=== PATIENT | female | born 1950 | race Caucasian/White ===

== ENCOUNTER 2019-06-27 09:18 | Emergency (ER) | payer MEDICARE, MEDICAID ==
--- NOTE | 2019-06-27 09:44 | ED ---
Abdominal Pain/Female - HPI Summary HPI Summary: Patient is a 68-year-old female who presents emergency department for severe upper abdominal pain times one day. Associated symptoms of nausea and vomiting. Patient denies chest pain, shortness of breath, fever, cough, urinary symptoms. Patient states she's had issues with her gallbladder in the past. Patient also notes history of bowel obstructions and numerous abdominal surgeries. Symptoms are moderate in severity. No current modifying factors. Past medical hx of RA. - History of Current Complaint Chief Complaint: EDAbdPain Stated Complaint: ABDOMINAL PAIN PER PT Time Seen by Provider: 06/27/19 09:28 Hx Obtained From: Patient Pain Intensity: 10 Allergies/Adverse Reactions: Allergies Allergy/AdvReac Type Severity Reaction Status Date / Time Penicillins Allergy Unknown Verified 06/27/19 09:25 Reaction Details codeine AdvReac Nausea And Verified 06/27/19 09:25 Vomiting morphine AdvReac Nausea And Verified 06/27/19 09:25 Vomiting Home Medications: Home Medications Acyclovir [Acyclovir 5% TOPICAL] 1 applic TOPICAL SEE INSTRUCTIONS 06/27/19 [ History Confirmed 06/27/19] Folic Acid TAB* [Folvite TAB*] 1 mg PO DAILY 06/27/19 [History Confirmed ] Gabapentin 300 mg PO TID 06/27/19 [History Confirmed 06/27/19] Methotrexate TAB* 4 tab PO WEEKLY 06/27/19 [History Confirmed 06/27/19] Tofacitinib Citrate [Xeljanz Xr] 1 tab PO DAILY 06/27/19 [History Confirmed 04/09] raNITIdine HCl [Ranitidine HCl] 150 mg PO DAILY 06/27/19 [History Confirmed 04/09] PMH/Surg Hx/FS Hx/Imm Hx Previously Healthy: Yes - Surgical History Surgery Procedure, Year, and Place: intesinal blockage,C section, carpal tunnel Infectious Disease History: No Infectious Disease History: Denies: Traveled Outside the [place] in Last 30 Days - Family History Known Family History: Positive: Non-Contributory - Social History Occupation: Disabled Lives: With Family Alcohol Use: None Substance Use Type: Reports: None Smoking Status (MU): Current Every Day Smoker Review of Systems Constitutional: Negative Negative: Fever, Chills Cardiovascular: Negative Negative: Chest Pain Respiratory: Negative Negative: Shortness Of Breath, Cough Positive: Abdominal Pain, Vomiting, Nausea. Negative: Diarrhea Genitourinary: Negative Negative: dysuria Neurological: Negative All Other Systems Reviewed And Are Negative: Yes Physical Exam Triage Information Reviewed: Yes Vital Signs On Initial Exam: Initial Vitals Temp Pulse Resp BP Pulse Ox 97.9 F 105 22 000/00 99 06/27/19 09:19 06/27/19 09:19 06/27/19 09:19 06/27/19 09:19 06/27/19 09:19 Vital Signs Reviewed: Yes Appearance: Positive: Pain Distress - Pt. lying in bed shaking in pain. Nontoxic appearing., Thin Skin: Positive: Warm, Dry Head/Face: Positive: Normal Head/Face Inspection Eyes: Positive: Normal, EOMI Neck: Positive: Supple Respiratory/Lung Sounds: Positive: Clear to Auscultation, Breath Sounds Present Cardiovascular: Positive: Normal, RRR Abdomen Description: Positive: Other: - Abd. is soft with diffuse tenderness. Majority of pian to RUQ quadrant and epigastric region. Musculoskeletal: Positive: Normal, Strength/ROM Intact Neurological: Positive: Normal, CN Intact II-III Psychiatric: Positive: Affect/Mood Appropriate Diagnostics - Vital Signs Vital Signs Temp Pulse Resp BP Pulse Ox 06/27/19 09:19 97.9 F 105 22 000/00 99 - Laboratory Result Diagrams: 06/27/19 09:53 06/27/19 09:53 Lab Statement: Any lab studies that have been ordered have been reviewed, and results considered in the medical decision making process. Abdominal Pain Fem Course/Dx - Course Course Of Treatment: Pt. is a 68 y.o female who presents to the ER for significant RUQ pain. Pt. afebrile. Pt. notes the only pain meds she can have is dilaudid. Pt. given 0.5mg. Blood work is unremarkable. ECG done at 0949 shows a sinus rhythm of 90bpm, right axis deviation, no ST elevation. GB u/s negative. CT abd./pelvis ordered for further evaluation. Labs and urinalysis are unremarkable other than minimally elevated lactic acid 2.2, patient given a liter of fluids. CT per radiology: IMPRESSION: 1. THERE IS A 1.4 X 1.4 HYPERDENSE VERSUS ENHANCING UTERINE LESION WHICH COULD BE BETTER. CHARACTERIZED BY ULTRASOUND OR PELVIC MRI WITH CONTRAST. ]. On reexamination patient's resting more comfortably. Suspect patient's pain is secondary to stool and gas. Did discuss uterine lesion and the fact that she will need close follow-up with her family doctor for further evaluation to further identify. Patient was given magnesium citrate to take home with her. She will follow-up with PCP next week and return to ER symptoms change or worsen. Patient understands and agrees with plan. - Diagnoses Differential Diagnosis: Positive: Gall Bladder Disease, Hepatitis, Renal Colic, Urinary Tract Infection Provider Diagnoses: Abdominal pain, Constipation, Lesion of uterus Discharge ED - Sign-Out/Discharge Documenting (check all that apply): Patient Departure Patient Received Moderate/Deep Sedation with Procedure: No - Discharge Plan Condition: Improved Disposition: HOME Patient Education Materials: Constipation (ED), Acute Abdominal Pain (ED) Referrals: [facility] [Outside] Additional Instructions: Call your PCP today to schedule an appointment for follow up within one week You will need an out patient ultrasound of your uterus to better evaluate abnormality seen on CT scan today Take magnesium citrate as directed Increaser fluids and fiber in diet Return to ER if symptoms change or worsen - Billing Disposition and Condition Condition: IMPROVED Disposition: Home
[2019-06-27] MEDS: NS 0.9% 1000 ML** 1,000 ML IV ONE (09:50)
[2019-06-27] MEDS: Ondansetron INJ* 2 MG/ML VIAL IV ONE (09:50)
[2019-06-27 10:10] LABS: ABS Lymphocytes 1.6 10^3/ul (1.0-4.8); ABS Monocytes 0.4 10^3/ul (0-0.8); ABS Neutrophils 6.7 10^3/ul (1.5-7.7); Eosinophil % 0.4 %; Hematocrit 44 % (35-47); Hemoglobin 14.5 g/dL (12.0-16.0); Lymphocyte % 18.2 %; Mean Corpuscular HGB Conc 33 g/dL (31-36); Mean Corpuscular Hemoglobin 30 pg (27-31); Mean Corpuscular Volume 91 fL (80-97); Mean Platelet Volume 7.5 fL (7.4-10.4); Nucleated Red Blood Cells % 0.1; Platelet Count 245 10^3/uL (150-450); Red Blood Count 4.78 10^6 /uL (3.70-4.87); Red Cell Distribution Width 14 % (10-15); White Blood Count 8.8 10^3/uL (3.5-10.8)
[2019-06-27] MEDS: HYDROmorphone INJ* 0.5 MG/0.5 ML SYRINGE IV SLOW PU ONE (10:15)
[2019-06-27 10:28] LABS: ALT 18 U/L (7-52); AST 21 U/L (13-39); Albumin 4.4 g/dL (3.2-5.2); Albumin/Globulin Ratio 1.6 (1-3); Alkaline Phosphatase 97 U/L (34-104); Anion Gap 7 mmol/L (2-11); Blood Urea Nitrogen 12 mg/dL (6-24); C Reactive Protein < 1.00 mg/L (<8.01); CO2 Carbon Dioxide 26 mmol/L (22-32); Calcium 9.3 mg/dL (8.6-10.3); Chloride 105 mmol/L (101-111); EGFR African American 93.5 (>60); EGFR Non-African American 77.3 (>60); Globulin 2.7 g/dL (2-4); Glucose 131 mg/dL (70-100); Magnesium 1.9 mg/dL (1.9-2.7); Potassium 4.1 mmol/L (3.5-5.0); Sodium 138 mmol/L (135-145); Total Protein 7.1 g/dL (6.4-8.9); Troponin I 0.01 ng/mL (<0.04)
[2019-06-27] MEDS: Iohexol 300* (CONTRAST) 10 ML SDV IV ONE (11:53)
[2019-06-27] MEDS: Magnesium CITRATE* 300 ML BTL PO ONE (13:49)
[2019-06-27 13:56] VITALS: BP 104/60
[2019-06-27 14:46] LABS: Urine Appearance Clear; Urine Bacteria Absent (Absent); Urine Bilirubin Negative (Negative); Urine Blood 1+ (Negative); Urine Color Yellow; Urine Glucose Negative (Negative); Urine Ketones Trace (Negative); Urine Nitrite Negative (Negative); Urine Protein Negative (Negative); Urine Red Blood Cell 2+(6-10/hpf) (Absent); Urine Specific Gravity 1.031 (1.010-1.030); Urine Urobilinogen Negative (Negative); Urine White Blood Cell Trace(0-5/hpf) (Absent)
== END 2019-06-27 13:56 | disposition home or self-care (01) ==
LOC: ED 09:18
DX: K59.00 Constipation, unspecified (principal); N85.9 Noninflammatory disorder of uterus, unspecified; F17.200 Nicotine dependence, unspecified, uncomplicated; Z79.899 Other long term (current) drug therapy; Z88.5 Allergy status to narcotic agent; Z88.0 Allergy status to penicillin
CPT/HCPCS: 36415; 74177; 76705; 80053; 81003; 81015; 83605; 83690; 83735; 84484; 85025; 86140; 87086; 93005; 96361; 96374; 96375; 99283; A9270-GY; J1170; J2405; Q9967